=== PATIENT | female | born 1980 | race Hispanic/Latino ===

== ENCOUNTER 2018-06-16 00:50 | Emergency (ER) | payer SELFPAY ==
[2018-06-16] MEDS ORDERED: NACL 0.9% 1000 ML 1,000 ML IV ONE (01:03)
[2018-06-16] MEDS ORDERED: TYLENOL ONE (01:08)
[2018-06-16 01:47] LABS: Bacteria,Urine 2+ /HPF (Negative); Bilirubin,Urine NEG (Negative); Blood,Urine NEG (Negative); Color,Urine Yellow (Yellow); Protein,Urine <15 mg/dL mg/dL (Negative); Urobilinogen,Urine < 2.0 mg/dL (<2.0)
[2018-06-16 01:50] LABS: Basophils # (Auto) 0.1 K/mm3 (0.0-0.1); Basophils % (Auto) 0.4 % (0.0-1.8); Eosinophils # (Auto) 0.2 K/mm3 (0.0-0.4); Eosinophils % (Auto) 1.9 % (0.0-4.3); Hematocrit 38.4 % (30.3-42.9); Hemoglobin 12.9 gm/dl (10.1-14.3); Lymphocytes # (Auto) 1.8 K/mm3 (1.2-5.4); Lymphocytes % (Auto) 14.8 % (13.4-35.0); Mean Corpuscular HGB Conc 34 % (30-34); Mean Corpuscular Volume 83 fl (79-97); Monocytes # (Auto) 0.9 K/mm3 (0.0-0.8); Monocytes % (Auto) 7.4 % (0.0-7.3); Platelet Count 354 K/mm3 (140-440); Red Cell Distribution Width 15.7 % (13.2-15.2)
[2018-06-16 02:15] LABS: Alanine Aminotransferase 15 units/L (7-56); Albumin 3.9 g/dL (3.9-5); BUN/Creatinine Ratio 15; Blood Urea Nitrogen 12 mg/dL (7-17); Calcium 8.8 mg/dL (8.4-10.2); Hemolysis Index 31
--- NOTE | 2018-06-16 03:50 | Emergency Department Report ---
ED Female HPI - General Chief complaint: Abdominal Pain Stated complaint: ABD PAIN Time Seen by Provider: 06/16/18 03:45 Source: patient Mode of arrival: Ambulatory Limitations: No Limitations - History of Present Illness Initial comments: 38-year-old female presents to the emergency room for suprapubic abdominal pain that radiates to the left flank that started 2 hours prior to arrival. Patient denies any vomiting admit to mild nausea. She denies any fever chills. Patient has a past medical history depression currently takes no medications on a daily basis. Has multiple antibiotic allergies. 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) Severity scale (0 -10): 10 Quality: sharp, aching Consistency: constant Improves with: none Worsens with: movement Are you Now?: No - Related Data Previous Rx's Medication Instructions Recorded Last Taken Type Amoxicillin/K Clav Tab [Augmentin 1 tab PO BID #28 tablet 07/12/14 Unknown Rx 875MG] Ibuprofen [Motrin 800 MG tab] 800 mg PO TID PRN #20 tablet 06/16/18 Unknown Rx Nitrofurantoin [place]/M-Cryst 100 mg PO Q12HR #20 capsule 06/16/18 Unknown Rx [Macrobid CAP] Allergies Allergy/AdvReac Type Severity Reaction Status Date / Time levofloxacin [From Levaquin] Allergy Hives Verified 06/24/15 14:13 sulfamethoxazole Allergy Hives Verified 06/24/15 14:13 [From Septra] trimethoprim [From Septra] Allergy Hives Verified 06/24/15 14:13 hydrocodone AdvReac Rash Verified 03/16/16 17:11 triamcinolone AdvReac Rash Verified 06/24/15 14:13 ED Review of Systems ROS: Stated complaint: ABD PAIN Other details as noted in HPI Comment: All other systems reviewed and negative Gastrointestinal: abdominal pain ED Past Medical Hx - Past Medical History Hx Seizures: No (pt denies) Hx Psychiatric Treatment: Yes (depression) - Surgical History Additional Surgical History: x 2. back surgery. bilateral ear surgery (multiple). TUBAL LIGATION - Social History Smoking Status: Current Every Day Smoker - Medications Home Medications: Home Medications Medication Instructions Recorded Confirmed Last Taken Type Amoxicillin/K Clav Tab [Augmentin 1 tab PO BID #28 tablet 07/12/14 Unknown Rx 875MG] Ibuprofen [Motrin 800 MG tab] 800 mg PO TID PRN #20 tablet 06/16/18 Unknown Rx Nitrofurantoin [place]/M-Cryst 100 mg PO Q12HR #20 capsule 06/16/18 Unknown Rx [Macrobid CAP] ED Physical Exam - General Limitations: No Limitations General appearance: alert, in no apparent distress - Head Head exam: Present: atraumatic, normocephalic - Eye Eye exam: Present: EOMI - ENT ENT exam: Present: mucous membranes moist - Respiratory Respiratory exam: Present: normal lung sounds bilaterally. Absent: respiratory distress - Cardiovascular Cardiovascular Exam: Present: tachycardia - GI/Abdominal GI/Abdominal exam: Present: soft, tenderness, guarding, normal bowel sounds. Absent: distended - Extremities Exam Extremities exam: Present: normal inspection, full ROM - Back Exam Back exam: Present: normal inspection - Neurological Exam Neurological exam: Present: alert, oriented X3 - Psychiatric Psychiatric exam: Present: normal affect, normal mood - Skin Skin exam: Present: warm, dry, intact, normal color. Absent: rash ED Course Vital Signs 06/16/18 00:56 Temperature 98.7 F Pulse Rate 120 H Respiratory 18 Rate Blood Pressure 167/87 O2 Sat by Pulse 100 Oximetry ED Medical Decision Making - Lab Data Result diagrams: 06/16/18 01:30 06/16/18 01:30 Laboratory Results - last 72 hr 06/16/18 06/16/18 06/16/18 01:30 01:30 01:30 WBC 12.3 H RBC 4.60 Hgb 12.9 Hct 38.4 MCV 83 MCH 28 MCHC 34 RDW 15.7 H Plt Count 354 Lymph % (Auto) 14.8 [place] % (Auto) 7.4 H Eos % (Auto) 1.9 Baso % (Auto) 0.4 Lymph # 1.8 [place] # 0.9 H Eos # 0.2 Baso # 0.1 Seg Neutrophils % 75.5 H Seg Neutrophils # 9.3 H Sodium 136 L Potassium 3.8 Chloride 103.8 Carbon Dioxide 19 L Anion Gap 17 BUN 12 Creatinine 0.8 Estimated GFR > 60 BUN/Creatinine Ratio 15 Glucose 89 Calcium 8.8 Total Bilirubin 0.20 AST 17 ALT 15 Alkaline Phosphatase 63 Total Protein 7.5 Albumin 3.9 Albumin/Globulin Ratio 1.1 Lipase 16 HCG, Qual Negative Urine Color Urine Turbidity Urine pH Ur Specific [place] Urine Protein Urine Glucose (UA) Urine Ketones Urine Blood Urine Nitrite Urine Bilirubin Urine Urobilinogen Ur Leukocyte Esterase Urine WBC (Auto) Urine RBC (Auto) U Epithel Cells (Auto) Urine Bacteria (Auto) Urine Yeast (Budding) 06/16/18 01:36 WBC RBC Hgb Hct MCV MCH MCHC RDW Plt Count Lymph % (Auto) [place] % (Auto) Eos % (Auto) Baso % (Auto) Lymph # [place] # Eos # Baso # Seg Neutrophils % Seg Neutrophils # Sodium Potassium Chloride Carbon Dioxide Anion Gap BUN Creatinine Estimated GFR BUN/Creatinine Ratio Glucose Calcium Total Bilirubin AST ALT Alkaline Phosphatase Total Protein Albumin Albumin/Globulin Ratio Lipase HCG, Qual Urine Color Yellow Urine Turbidity Clear Urine pH 8.0 H Ur Specific [place] 1.009 Urine Protein <15 mg/dl Urine Glucose (UA) Neg Urine Ketones Neg Urine Blood Neg Urine Nitrite Pos Urine Bilirubin Neg Urine Urobilinogen < 2.0 Ur Leukocyte Esterase Lg Urine WBC (Auto) 14.0 H Urine RBC (Auto) 1.0 U Epithel Cells (Auto) 3.0 Urine Bacteria (Auto) 2+ Urine Yeast (Budding) 1+ - Radiology Data Radiology results: report reviewed CT of pelvis with contrast there is a 4 cm dominant cyst in the left ovary. - Medical Decision Making Patient has been evaluated by this provider in fast track. Urinalysis is positive for UTI. CT of abdomen and pelvis with contrast shows a 4 cm dominant cyst on the left ovary. Spoke to Carol from [facility] she recommends treating her urinary tract infection pain management ibuprofen for left ovarian cyst and to have her follow-up in the clinic. Critical care attestation.: If time is entered above; I have spent that time in minutes in the direct care of this critically ill patient, excluding procedure time. ED Disposition Clinical Impression: Left ovarian cyst UTI (urinary tract infection) Qualifiers: Urinary tract infection type: site unspecified Hematuria presence: without hematuria Qualified Code(s): N39.0 - Urinary tract infection, site not specified Disposition: TO HOME OR SELFCARE Is pt being admited?: No Does the pt Need Aspirin: No Condition: Stable Instructions: Abdominal Pain (ED), Urinary Tract Infection in Women (ED) Additional Instructions: Please complete antibiotics as prescribed. Ibuprofen for pain management. It is very important for you to follow-up with [facility] and I have listed one below that I spoke to regards to your care. Prescriptions: Ibuprofen [Motrin 800 MG tab] 800 mg PO TID PRN #20 tablet PRN Reason: Inflammation Nitrofurantoin [place]/M-Cryst [Macrobid CAP] 100 mg PO Q12HR #20 capsule Referrals: [facility] [Provider Group] - 3-5 Days Forms: Work/School Release Form(ED), Accompanied Note
[2018-06-16] MEDS ORDERED: MORPHINE IV ONE (04:00)
[2018-06-16] MEDS ORDERED: ZOFRAN IV ONE (04:00)
--- NOTE | 2018-06-16 05:52 | Cat Scan Report ---
FINAL REPORT PROCEDURE: CT ABDOMEN PELVIS W CON TECHNIQUE: Computerized axial tomography of the abdomen and pelvis was performed after the IV inject ion of iodinated nonionic contrast. HISTORY: abdominal pain with tenderness guarding. COMPARISON: No prior studies are available for comparison. FINDINGS: Visualized lower thorax: No significant abnormality. Liver: Normal size and attenuation. Spleen: Normal size and attenuation. Gallbladder and biliary system: Normal. Pancreas: Normal. Adrenals: Normal. Kidneys: Both kidneys have a normal size. No hydronephrosis. No renal stones or masses. GI tract: No obstruction. The cecum, appendix and colon are normal.. Lymph nodes and mesentery: Normal. Vasculature: Normal. Bladder: Normal. Reproductive organs: There is a 4 centimeter dominant cyst on the left ovary.. Peritoneum: No free fluid. Musculoskeletal structures: No significant abnormality. Other: None. IMPRESSION: There is no evidence of intestinal or urinary tract obstruction. There is a 4 centimeter dominant cyst on the left ovary.
[2018-06-16] MEDS ORDERED: TYLENOL PO ONE (05:54)
[2018-06-16 06:52] VITALS: BP 126/75
== END 2018-06-16 06:54 | disposition home or self-care (01) ==
LOC: ED 00:50
DX: N83.202 Unspecified ovarian cyst, left side (principal); N39.0 Urinary tract infection, site not specified; F32.9 Major depressive disorder, single episode, unspecified; F17.200 Nicotine dependence, unspecified, uncomplicated; Z88.1 Allergy status to other antibiotic agents; Z88.2 Allergy status to sulfonamides; Z88.5 Allergy status to narcotic agent; Z98.51 Tubal ligation status
CPT/HCPCS: 36415; 74177; 80053; 81001; 83690; 84703; 85025; 87086; 96374; 96375; 99284; J2270; J2405; J7030; Q9967